=== PATIENT | male | born 1985 | race Caucasian/White ===

== ENCOUNTER 2022-02-22 15:47 | Emergency (ER) | payer OTHER, SELFPAY ==
[2022-02-22 16:10] VITALS: BP 120/77; PULSE 76; RESP 26; TEMP 36.2; O2SAT 99; BMI 33.4
--- NOTE | 2022-02-22 16:15 | DI.RAD.S_ITS ---
PROCEDURE: XR CHEST 2V INDICATIONS: COVID positive 10 days worsening. TECHNIQUE: 2 views of the chest were acquired. COMPARISON: None. FINDINGS: Surgical changes and devices: None. Lungs and pleura: Lungs are clear. No pleural effusions or pneumothorax. Mediastinum: Mediastinal contours are normal. Heart size is normal. Bones and chest wall: No suspicious bony abnormalities. Soft tissues appear unremarkable. IMPRESSION: No focal infiltrates. Dictated by: Yousif Sykes M.D. on 02/22/2022 at 15:42 Approved by: Yousif Sykes M.D. on 02/22/2022 at 15:43
--- NOTE | 2022-02-22 18:46 | DI.CT.S_ITS ---
PROCEDURE: CT ANGIO CHEST PE PROTOCOL INDICATIONS: day 10 covid, worse with CP, exertional dyspnea and orthopne TECHNIQUE: After the administration of intravenous contrast, 2 mm thick sections acquired from the pulmonary apices to the posterior costophrenic angles. 3-dimensional maximum intensity projection (MIP) coronal and sagittal reformats were then acquired through the thorax. For radiation dose reduction, the following was used: automated exposure control, adjustment of mA and/or kV according to patient size. COMPARISON: None. FINDINGS: Image quality: Excellent. Pulmonary arteries: Pulmonary arteries are normal in size, and demonstrate no intraluminal filling defects to suggest central pulmonary embolism. Lungs and pleura: Lungs are clear. No pleural effusions or pneumothorax. Central and peripheral airways are patent. Mediastinum: Heart size is normal, without pericardial effusion. No mediastinal or hilar adenopathy. Thoracic aorta is normal in caliber and enhancement. Esophagus is normal in caliber, without hiatal hernia. Bones and chest wall: No suspicious bony lesions. Ribs and thoracic spine appear intact throughout. Thyroid gland is within normal limits. No axillary or supraclavicular adenopathy. Abdomen: There is mild splenomegaly. Rest of the upper abdominal solid organs appear normal in the early arterial phase of enhancement. IMPRESSION: 1. No evidence of pulmonary emboli. No thoracic aortic aneurysm or dissection. 2. Bilateral lungs are clear. 3. No mediastinal or hilar lymphadenopathy. 4. Mild splenomegaly. Dictated by: Neeraj Oseguera M.D. on 02/22/2022 at 20:05 Approved by: Neeraj Oseguera M.D. on 02/22/2022 at 20:09
[2022-02-22] MEDS: BENZONATATE 100 MG CAPSULE PO (19:19)
[2022-02-22 19:28] LABS: Add Manual Diff / Slide Review NO; Basophils Absolute Auto 400 /uL (0-100); Basophils Percent Auto 4.6 % (0-2); Eosinophils Absolute Auto 300 /uL (0-450); Eosinophils Percent Auto 3.3 % (2-4); Hematocrit 42.9 % (41-53); Hemoglobin 14.7 g/dL (13.5-17.5); Lymphocytes Absolute Auto 2500 /uL (1100-4500); Lymphocytes Percent Auto 33.2 % (25-40); Mean Corpuscular HGB Conc 34.4 % (30-36); Mean Corpuscular Hemoglobin 30.3 PG (26-34); Mean Corpuscular Volume 88.1 fL (80-100); Monocytes Absolute Auto 400 /uL (0-900); Monocytes Percent Auto 5.7 % (3-14); Neutrophils Absolute Auto 4100 /uL (1500-7000); Neutrophils Percent Auto 53.2 % (50-75); Platelet Count 219 X10^3/uL (150-400); Red Blood Cell Count 4.87 X10^6/uL (4.5-5.9); Red Cell Distribution Width 13.3 % (11.6-14.8); White Blood Cell Count 7.6 X10^3/uL (4.5-11.0)
[2022-02-22 19:45] LABS: Alanine Aminotransferase 106 IU/L (<50); Albumin 3.8 g/dL (3.5-5.0); Albumin Globulin Ratio 1.2 (1.0-2.8); Alkaline Phosphatase 75 U/L (38-126); Aspartate Aminotransferase 41 IU/L (17-59); BUN Creatinine Ratio 11.9 (6-22); Bilirubin Total 0.4 mg/dL (0.2-1.3); Blood Urea Nitrogen 13 mg/dL (9-20); Calcium 8.8 mg/dL (8.4-10.2); Carbon Dioxide 25 mmol/L (22-32); Chloride 108 mmol/L (98-107); Creatine Kinase 64 U/L (55-170); Estimated Glomerular Filt Rate > 60 mL/min (>60); Globulin 3.3 g/dL (1.7-4.1); Glucose 96 mg/dL (70-100); HEMOLYSIS 29 (0-50); Potassium 4.2 mmol/L (3.4-5.1); Sodium 138 mmol/L (137-145); Total Protein 7.1 g/dL (6.3-8.2)
[2022-02-22 19:56] LABS: NT-proBNP (BNP-Adult 18+) 18 pg/mL (<125); Troponin I < 0.012 ng/mL (0.01-0.034)
[2022-02-22 20:01] LABS: Procalcitonin 0.04 ng/mL (<0.5)
--- NOTE | 2022-02-22 20:28 | ED.GENADULT ---
HPI - General Adult General Chief complaint: Upper Respiratory Symptoms Stated complaint: covid+/sob/sinus pressure/[id number] Time Seen by Provider: 02/22/22 18:04 Source: patient Mode of arrival: Ambulatory History of Present Illness HPI narrative: Otherwise healthy 36-year-old gentleman vaccinated for COVID on day 10 of infection with complaints of increasing symptoms over the last 24-48 hours consisting of increasing chest pain, dyspnea, exertional dyspnea significantly more fatigued and worsening cough. Initial symptoms had included myalgias sore throat mild cough fevers and nasal discharge all of which have resolved. He reports no abdominal pain vomiting diarrhea or constipation. He is no longer having headaches but he still is having posterior eye pressure. He did note any palpitations and he does not have a history of coronary artery disease Related Data Previous Rx's Medication Instructions Recorded benzonatate 200 mg capsule 200 mg PO BID-TID PRN cough #14 02/22/22 caps Allergies Allergy/AdvReac Type Severity Reaction Status Date / Time No Known Drug Allergies Allergy Verified 02/22/22 16:10 Review of Systems Review of Systems Narrative: Remainder of complete review of systems is otherwise unremarkable except for that included in the HPI. Patient History Medical History (Updated 02/22/22 @ 20:39 by Christine Patel MD) COVID-19 Social History Smoking Status: Never smoker Smoking Status: Never smoker alcohol intake frequency: 3 or more drinks per day Substance Use Type: does not use Exam Initial Vital Signs Initial Vital Signs: Vital Signs Temperature 97.2 F L 02/22/22 16:10 Pulse Rate 76 02/22/22 16:10 Respiratory Rate 26 H 02/22/22 16:10 Blood Pressure 120/77 02/22/22 16:10 Pulse Oximetry 99 02/22/22 16:10 Oxygen Delivery Method 02/22/22 16:10 General: Healthy appearing, in no acute distress. Able to give a complete and coherent history. Well-nourished well-developed HEENT: Moist mucous membranes, normal sclera with reactive pupils, Neck: No JVD, supple Respiratory: Lungs are clear to auscultation, no wheezing no rales no rhonchi. Full and symmetrical air movement Cardiac: Regular rate and rhythm no murmurs no bruits Abdomen: Soft, nontender, good bowel tones, no flank pain Skin: Warm and dry, no rashes Neurologic: Grossly neurologically intact with no obvious asymmetries or abnormalities Extremities: No trauma, well perfused, no lower extremity edema Psych: Cooperative, appropriate insight and affect Course Orders Ordered: ED Orders 02/22/22 16:15 XR chest 2V Stat 02/22/22 18:46 CT angio chest PE protocol Stat 02/22/22 18:51 EKG-12 Lead Stat 02/22/22 19:20 Complete Blood Count AUTO DIFF Stat Comprehensive Metabolic Panel Stat Magnesium Stat NT-proBNP (BNP-Adult 18+) Stat Procalcitonin Stat Troponin & CK Cardiac Panel Stat Troponin I Stat Discontinued Medications Benzonatate (Benzonatate 100 Mg Capsule) 100 mg PO NOW ONE Stop: 02/22/22 18:52 Last Admin: 02/22/22 19:19 Dose: 100 mg Documented By: AT Vital Signs Vital signs: Vital Signs - 8 hr 02/22/22 16:10 Temperature 97.2 F L Pulse Rate 76 Respiratory Rate 26 H Blood Pressure 120/77 Pulse Oximetry 99 Oxygen Delivery Method Room Air Medical Decision Making Lab Data Result diagrams: 02/22/22 19:20 02/22/22 19:20 Labs: Lab Results 02/22/22 02/22/22 02/22/22 Range/Units 19:20 19:20 19:20 WBC 7.6 (4.5-11.0) X10^3/uL RBC 4.87 (4.5-5.9) X10^6/uL Hgb 14.7 (13.5-17.5) g/dL Hct 42.9 (41-53) % MCV 88.1 (80-100) fL MCH 30.3 (26-34) PG MCHC 34.4 (30-36) % RDW 13.3 (11.6-14.8) % Plt Count 219 (150-400) X10^3/uL Neut % (Auto) 53.2 (50-75) % Lymph % (Auto) 33.2 (25-40) % [place] % (Auto) 5.7 (3-14) % Eos % (Auto) 3.3 (2-4) % Baso % (Auto) 4.6 H (0-2) % Neut # (Auto) 4100 (3218-5005) /uL Lymph # (Auto) 2500 (0309-5675) /uL [place] # (Auto) 400 (0-900) /uL Eos # (Auto) 300 (0-450) /uL Baso # (Auto) 400 H (0-100) /uL Sodium 138 (137-145) mmol/L Potassium 4.2 (3.4-5.1) mmol/L Chloride 108 H (98-107) mmol/L Carbon Dioxide 25 (22-32) mmol/L BUN 13 (9-20) mg/dL Creatinine 1.09 (0.66-1.25) mg/dL Estimated GFR > 60 (>60) mL/min BUN/Creatinine Ratio 11.9 (6-22) Glucose 96 (70-100) mg/dL Calcium 8.8 (8.4-10.2) mg/dL Magnesium 2.0 (1.6-2.3) mg/dL Total Bilirubin 0.4 (0.2-1.3) mg/dL AST 41 (17-59) IU/L ALT 106 H (<50) IU/L Alkaline Phosphatase 75 (38-126) U/L Total Creatine Kinase 64 (55-170) U/L CK-MB (CK-2) TNP CK-MB (CK-2) Rel Index TNP Troponin I < 0.012 < 0.012 (0.01-0.034) ng/mL NT-Pro-B Natriuret Pep 18 (<125) pg/mL Total Protein 7.1 (6.3-8.2) g/dL Albumin 3.8 (3.5-5.0) g/dL Globulin 3.3 (1.7-4.1) g/dL Albumin/Globulin Ratio 1.2 (1.0-2.8) Procalcitonin 0.04 (<0.5) ng/mL Imaging Data Chest x-ray: Radiologist's Impression: FINDINGS:? ? Surgical changes and devices:? None.? ? Lungs and pleura:? Lungs are clear.? No pleural effusions or pneumothorax.? ? Mediastinum:? Mediastinal contours are normal.? Heart size is normal.? ? Bones and chest wall:? No suspicious bony abnormalities.? Soft tissues appear unremarkable.? IMPRESSION:? ? No focal infiltrates. ? ? Dictated by: Yousif Sykes M.D. on 02/22/2022 at 15:42 ? ? CT scan - chest: Radiologist's Impression: FINDINGS:? Image quality:? Excellent.? ? Pulmonary arteries:? Pulmonary arteries are normal in size, and demonstrate no intraluminal filling defects to suggest central pulmonary embolism.? ? Lungs and pleura:? Lungs are clear.? No pleural effusions or pneumothorax.? Central and peripheral airways are patent.? ? Mediastinum:? Heart size is normal, without pericardial effusion.? No mediastinal or hilar adenopathy.? Thoracic aorta is normal in caliber and enhancement.? Esophagus is normal in caliber, without hiatal hernia.? ? Bones and chest wall:? No suspicious bony lesions.? Ribs and thoracic spine appear intact throughout.? Thyroid gland is within normal limits.? No axillary or supraclavicular adenopathy.? ? Abdomen:? There is mild splenomegaly.? Rest of the upper abdominal solid organs appear normal in the early arterial phase of enhancement.? ? IMPRESSION:? 1. No evidence of pulmonary emboli.? No thoracic aortic aneurysm or dissection. 2. Bilateral lungs are clear. 3. No mediastinal or hilar lymphadenopathy. 4.? Mild splenomegaly.? ? ? Dictated by: Neeraj Oseguera M.D. on 02/22/2022 at 20:05 ? ? ECG Data Interpretation: Sinus rhythm at a rate of 57 No acute ischemic changes Normal intervals normal axis MDM Narrative Medical decision making narrative: Otherwise healthy 36-year-old gentleman day 10 of COVID with initial symptoms essentially resolved by day 8 and now worsening chest pain and dyspnea. Labs are reassuring, he is showing no signs of hypoxia. CT scan does not suggest any blood clots or pulmonary complications. There is no evidence of myocarditis or pericardial effusion. At this point I believe he is simply having a slightly prolonged recovery from his COVID and not showing signs of superimposed bacterial pneumonia or clotting or cardiac complications. Reassurance is given he is safe for home discharge Discharge Plan Departure Patient Disposition: Home Clinical Impression: COVID-19 Instructions: COVID-19 Activity Restrictions/Additional Instructions: Thank you for coming in today With symptoms getting worse 10 days into your COVID infection the possibility of other complications is very real. The workup today confirms that you do not have bacterial infection, there is no evidence of clotting in your lungs are your heart, no evidence of a virus affecting your heart or fluid collecting around your heart. At this time I think you simply need a bit more time to continue to get her energy back. Using the Tessalon/benzonatate to help suppress the cough can be helpful. It is okay to combined this with the Mucinex that you have been successfully using. If you find that you are getting worse or develop any new symptoms, please feel free to return to the emergency department for further evaluation. Prescriptions: New benzonatate 200 mg capsule 200 mg PO BID-TID PRN (Reason: cough) Qty: 14 0RF
[2022-02-22 21:11] VITALS: BP 115/76; PULSE 57; RESP 18; O2SAT 99
== END 2022-02-22 21:11 | disposition home or self-care (01) ==
PROVIDERS: Emergency Provider Emergency Medicine
DX: U07.1 COVID-19 (principal); R07.9 Chest pain, unspecified
CPT/HCPCS: 36415; 71046; 71275; 80053; 82550; 83735; 83880; 84145; 84484; 85025; 93005; 93010; 99284; Q9967

== ENCOUNTER 2022-04-27 14:06 | Emergency (ER) | payer OTHER, SELFPAY ==
[2022-04-27] VITALS (10 sets, daily range): BP systolic 106–146; BP diastolic 65–80; PULSE 57–71; RESP 18–20; TEMP 36.9; O2SAT 98–100
--- NOTE | 2022-04-27 | DI.CT.S_ITS ---
PROCEDURE: CT ANGIO HEAD INDICATIONS: LEFT SIDE NUMB TECHNIQUE: Precontrast 4.5 mm thick angled axial sections acquired from the foramen magnum to the vertex. After the administration of intravenous contrast, 1 mm thick sections acquired through the [place] of [place]. Postcontrast 4.5 mm thick sections then re-acquired from the foramen magnum to the vertex. 10 mm thick dhvqtxl-ejzzanxey-cgnrobxrmh (MIP) reformats were acquired of the central intracranial vasculature. For radiation dose reduction, the following was used: automated exposure control, adjustment of mA and/or kV according to patient size. COMPARISON: [facility], CT, CT STROKE, 04/27/2022, 14:30. [facility], CT, CT ANGIO HEAD AND NECK, 04/27/2022, 14:30. FINDINGS: Image quality: Excellent. Anterior circulation: Intracranial internal carotid arteries are normal in size and flow. The flow within the paired anterior cerebral arteries is normal and symmetric. The flow within the middle cerebral arteries is normal and symmetric. The anterior communicating artery is seen. No aneurysms are seen. Posterior circulation: Visualized portions of the vertebral arteries demonstrate normal caliber, and join to form a normal appearing basilar artery. Flow within the posterior cerebral arteries is normal and symmetric. No aneurysms are seen. CSF spaces: Ventricles are normal in size and shape. Basal cisterns are patent. No extra-axial fluid collections. Brain: No midline shift. No intracranial bleeds or masses. Mallory-white matter interface appears intact. Skull and face: Calvarium and facial bones appear intact, without suspicious lesions. Sinuses: Visualized sinuses and mastoids are clear. IMPRESSION: No significant intracranial arterial abnormality is seen. Dictated by: Yousif Sykes M.D. on 04/27/2022 at 14:58 Approved by: Yousif Sykes M.D. on 04/27/2022 at 14:59
--- NOTE | 2022-04-27 14:12 | DI.CT.S_ITS ---
PROCEDURE: CT ANGIO NECK INDICATIONS: numb/tingling worse x 30 mins. hx bleed TECHNIQUE: After the administration of intravenous contrast, 1.5 mm axial sections acquired from the aortic arch to the [place] of [place]. Maximum intensity projection (MIP) reformats were then performed. COMPARISON: None. FINDINGS: Image quality: Obtained images are good Neck angiography: Aortic arch and subclavian arteries: Normal flow, no aneurysm. CCAs: No stenosis, occlusion, or aneurysm. ICA origins (by NASCET criteria): No hemodynamically significant narrowing. ICAs: No stenosis, occlusion or aneurysm. ECAs: Origins are patent. Vertebral arteries: Unremarkable Soft tissues: No significant mass, aneurysm, or lymphadenopathy Lung apices: No pneumothorax Bones: No acute or suspicious abnormality. IMPRESSION: No high-grade stenosis, dissection, or large vessel occlusion on CTA neck views. No significant incidental findings. Please note, due to technical error, a CTA head was not performed from the wflnqi-ba-Avzlks to the cranial vertex. The proximal portions of the [id number]-pm-Gzvehp appear patent, but is not fully seen. If this is felt to be necessary, CTA head can be reordered. Any quantitative stenosis measurements were performed using the NASCET criteria. Dictated by: Robin Villegas M.D. on 04/27/2022 at 15:21 Approved by: Robin Villegas M.D. on 04/27/2022 at 15:28
--- NOTE | 2022-04-27 14:12 | DI.CT.S_ITS ---
PROCEDURE: CT STROKE INDICATIONS: numb/tingling worsening, hx of head bleeds TECHNIQUE: Noncontrast 4.5 mm thick angled axial sections acquired from the foramen magnum to the vertex, with coronal reformats. For radiation dose reduction, the following was used: automated exposure control, adjustment of mA and/or kV according to patient size. COMPARISON: None. FINDINGS: Image quality: Excellent CSF spaces: Basal cisterns are patent. Lateral ventricles are symmetric. Volume: Generally maintained. Brain: No intracranial hemorrhage. Mallory-white differentiation is grossly maintained. Craniofacial structures: No displaced fracture. Sinuses are clear. Orbits are intact. IMPRESSION: No acute intracranial abnormality. A CTA has already been obtained at the time of dictation. This study fulfills neurological imaging criteria for inclusion or exclusion of acute stroke therapies based on available published neurological imaging guidelines. Dictated by: Robin Villegas M.D. on 04/27/2022 at 15:05 Approved by: Robin Villegas M.D. on 04/27/2022 at 15:07
--- NOTE | 2022-04-27 14:20 | PC.NURSE ---
faxed facesheet to /[facility] Stroke/Neuro [phone]
[2022-04-27 14:27] LABS: Add Manual Diff / Slide Review NO; Basophils Absolute Auto 0 /uL (0-100); Basophils Percent Auto 0.2 % (0-2); Eosinophils Absolute Auto 200 /uL (0-450); Hematocrit 42.5 % (41-53); Hemoglobin 14.8 g/dL (13.5-17.5); Lymphocytes Absolute Auto 2900 /uL (1100-4500); Lymphocytes Percent Auto 30.9 % (25-40); Mean Corpuscular HGB Conc 34.8 % (30-36); Mean Corpuscular Hemoglobin 30.5 PG (26-34); Mean Corpuscular Volume 87.8 fL (80-100); Monocytes Absolute Auto 700 /uL (0-900); Monocytes Percent Auto 7.5 % (3-14); Neutrophils Absolute Auto 5500 /uL (1500-7000); Neutrophils Percent Auto 59.4 % (50-75); Platelet Count 213 X10^3/uL (150-400); Red Blood Cell Count 4.83 X10^6/uL (4.5-5.9); Red Cell Distribution Width 13.6 % (11.6-14.8); White Blood Cell Count 9.3 X10^3/uL (4.5-11.0)
[2022-04-27 14:35] LABS: INR 1.1 (0.9-1.3); Prothrombin Time 12.5 SECONDS (10.1-12.7)
[2022-04-27 14:37] LABS: PTT Partial Thromboplastin Tim 34 SECONDS (26-36)
--- NOTE | 2022-04-27 14:50 | ED_ITS ---
HPI - Neuro Symptoms/Deficit General Chief Complaint: Neuro Symptoms/Deficit Stated Complaint: lt side numb Time Seen by Provider: 04/27/22 14:12 Source: patient Mode of arrival: Ambulatory History of Present Illness HPI Narrative: This is a 37-year-old male who presents with decreased sensation of the left arm, cheek left leg that started about 130 today. Patient noted on his way over while walking that he had a little bit of difficulty with his left leg with movement. 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 He states the cause was never clearly found he had MRIs at [facility] in [place] and at one point was on anti seizure medication but told that was not the cause. Patient denies any headache. No acute vision changes states speech might be a little bit off but he is equivocal about this. No chest pain, no shortness of breath. He had some nausea after contrast. No sensation changes on the opposite side no GI or urinary symptoms. He states he was camping this weekend had gotten home and was taking a shower when he noticed symptoms start. On Anticoagulants: No Related Data Previous Rx's Medication Instructions Recorded benzonatate 200 mg capsule 200 mg PO BID-TID PRN cough #14 02/22/22 caps Allergies Allergy/AdvReac Type Severity Reaction Status Date / Time No Known Drug Allergies Allergy Verified 02/22/22 16:10 Review of Systems Review of Systems ROS Unobtainable: All systems reviewed & are unremarkable except as noted in HPI and below Hematologic/Lymphatic On Anticoagulants: No Patient History Medical History COVID-19 Social History Smoking Status: Never smoker Smoking Status: Never smoker alcohol intake frequency: 3 or more drinks per day Substance Use Type: does not use Exam Narrative Exam Narrative: GEN: well nourished, well appearing male, alert and oriented x 0 3, patient appears to be in mild distress. HEENT: Atraumatic, pupils are equal round reactive to light, extraocular m ovements are intact, nares are clear, TMs are clear with no fluid, there is no conjunctival pallor. Throat is clear without any exudates, erythema, tonsillar enlargement or uvular deviation HEART: Regular rate and rhythm without murmur, clicks, rubs. No carotid bruits, pulses are equal in upper and lower extremities LUNGS:Lungs clear to auscultation, no wheezes, rales, crackles, chest moves symm etrically ABD:bowel sounds normal, soft, non-tender, no guarding, rebound, rigidity, no masses noted, no hepatosplenomegaly :No CVA tenderness MSCL: Non-tender, no muscle atrophy, muscles strength 5/5 upper and lower extremities, full range of motion, normal gait NEURO:CN 2-12 intact, sensation slightly decreased but present left leg, arm, cheek, finger nose finger test normal, heel moss test normal with right foot. Patient did have some difficulty with left foot to right moss mildly. Initial Vital Signs Initial Vital Signs: Vital Signs Temperature 98.5 F 04/27/22 14:08 Pulse Rate 71 04/27/22 14:08 Respiratory Rate 20 04/27/22 14:08 Blood Pressure 121/78 04/27/22 14:08 Pulse Oximetry 100 04/27/22 14:08 Oxygen Delivery Method 04/27/22 14:08 Scores NIH Stroke Scale Level of Conciousness: Alert, keenly responsive Ask month/age: Answers both questions correctly. Open/close eyes, close hand: Performs both tasks correctly Best gaze horizontal: Normal Visual dalton: No visual loss Facial palsy: Normal symetrical movement Left arm drift: No drift for full 10 sec Right arm drift: No drift for full 10 sec Left leg drift: No drift for full 5 sec Right leg drift: No drift for full 5 sec Limb ataxia: Present in one limb Sensory on face/arms/legs: Mild to moderate sensory loss, can tell touch Best language: No aphasia, normal Dysarthria: Normal Extinction or inattention: No abnormality Total NIH Stroke scale score: 2 Course Orders Ordered: ED Orders 04/27/22 14:[address] angio head and neck Stat Urine Drug Screen, Rapid Stat 04/27/22 14:19 Basic Metabolic Panel Stat Complete Blood Count AUTO DIFF Stat Partial Thromboplastin Time Stat Prothrombin Time INR Stat Troponin & CK Cardiac Panel Stat 04/27/22 14:34 COVID19 -Nasal RAPID/Pre-Proc Stat 04/27/22 15:08 EKG-12 Lead Stat Sodium Chloride (Normal Saline 0.9%) 1,000 mls @ 150 mls/hr IV CONT MATILDE Last Infusion: 04/27/22 18:06 Dose: 0 mls/hr Documented By: Admin: 04/27/22 15:46 Dose: 150 mls/hr Documented By: DANYEL Discontinued Medications Ondansetron HCl (Ondansetron 4 Mg/2 Ml Inj) 4 mg IV NOW ONE Stop: 04/27/22 15:48 Last Admin: 04/27/22 15:49 Dose: 4 mg Documented By: DANYEL Consultations Consultation #1: Dr. Davey, neurology. Was able to review CT angio head and neck including 2nd set of imaging that was sent after patient was rescanned. MRI was reported blooming and left zayas consistent with hemangioma or cavernoma which I obtained verbally from the ED doc at [facility]. Or images. They do not recommend antiplatelet at this time, they do recommend follow-up with neurosurgery which patient has already arranged as well as General Neurology. Does not feel he needs acute MRI today. Aware symptoms have not resolved. Time: 16:22 Vital Signs Vital signs: Vital Signs - 8 hr 04/27/22 14:08 04/27/22 17:00 04/27/22 15:00 Temperature 98.5 F Pulse Rate 71 68 60 Respiratory Rate 20 18 18 Blood Pressure 121/78 108/69 145/68 H Pulse Oximetry 100 99 98 Oxygen Delivery Method Room Air 04/27/22 16:30 04/27/22 15:50 04/27/22 14:15 Temperature Pulse Rate 57 L 58 L 65 Respiratory Rate 18 18 18 Blood Pressure 111/65 112/68 146/80 H Pulse Oximetry 98 98 98 Oxygen Delivery Method 04/27/22 17:14 04/27/22 17:15 04/27/22 17:15 Temperature Pulse Rate 67 62 Respiratory Rate Blood Pressure 106/67 Pulse Oximetry 100 100 Oxygen Delivery Method 04/27/22 17:30 04/27/22 17:30 04/27/22 18:00 Temperature Pulse Rate 68 Respiratory Rate Blood Pressure 108/68 110/70 Pulse Oximetry 100 Oxygen Delivery Method 04/27/22 18:00 Temperature Pulse Rate 64 Respiratory Rate Blood Pressure Pulse Oximetry 100 Oxygen Delivery Method MDM - Neuro Symptoms/Deficit Lab Data Result diagrams: 04/27/22 14:19 04/27/22 14:19 Labs: Lab Results 04/27/22 04/27/22 04/27/22 Range/Units 14:19 14:19 14:19 WBC 9.3 (4.5-11.0) X10^3/uL RBC 4.83 (4.5-5.9) X10^6/uL Hgb 14.8 (13.5-17.5) g/dL Hct 42.5 (41-53) % MCV 87.8 (80-100) fL MCH 30.5 (26-34) PG MCHC 34.8 (30-36) % RDW 13.6 (11.6-14.8) % Plt Count 213 (150-400) X10^3/uL Neut % (Auto) 59.4 (50-75) % Lymph % (Auto) 30.9 (25-40) % Grimes % (Auto) 7.5 (3-14) % Eos % (Auto) 2.0 (2-4) % Baso % (Auto) 0.2 (0-2) % Neut # (Auto) 5500 (1671-5482) /uL Lymph # (Auto) 2900 (9953-1882) /uL Grimes # (Auto) 700 (0-900) /uL Eos # (Auto) 200 (0-450) /uL Baso # (Auto) 0 (0-100) /uL PT 12.5 (10.1-12.7) SECONDS INR 1.1 (0.9-1.3) APTT 34 (26-36) SECONDS Sodium 139 (137-145) mmol/L Potassium 3.9 (3.4-5.1) mmol/L Chloride 105 (98-107) mmol/L Carbon Dioxide 26 (22-32) mmol/L BUN 20 (9-20) mg/dL Creatinine 1.34 H (0.66-1.25) mg/dL Estimated GFR > 60 (>60) mL/min BUN/Creatinine Ratio 14.9 (6-22) Glucose 91 (70-100) mg/dL Calcium 8.7 (8.4-10.2) mg/dL Total Creatine Kinase 170 (55-170) U/L CK-MB (CK-2) 1.39 (<2.37) ng/mL CK-MB (CK-2) Rel Index 0.8 L (1.5-5.0) % Troponin I < 0.012 (0.01-0.034) ng/mL SARS-CoV-2 (PCR) (Negative) 04/27/22 Range/Units 14:34 WBC (4.5-11.0) X10^3/uL RBC (4.5-5.9) X10^6/uL Hgb (13.5-17.5) g/dL Hct (41-53) % MCV (80-100) fL MCH (26-34) PG MCHC (30-36) % RDW (11.6-14.8) % Plt Count (150-400) X10^3/uL Neut % (Auto) (50-75) % Lymph % (Auto) (25-40) % Grimes % (Auto) (3-14) % Eos % (Auto) (2-4) % Baso % (Auto) (0-2) % Neut # (Auto) (9490-5778) /uL Lymph # (Auto) (0423-5687) /uL Grimes # (Auto) (0-900) /uL Eos # (Auto) (0-450) /uL Baso # (Auto) (0-100) /uL PT (10.1-12.7) SECONDS INR (0.9-1.3) APTT (26-36) SECONDS Sodium (137-145) mmol/L Potassium (3.4-5.1) mmol/L Chloride (98-107) mmol/L Carbon Dioxide (22-32) mmol/L BUN (9-20) mg/dL Creatinine (0.66-1.25) mg/dL Estimated GFR (>60) mL/min BUN/Creatinine Ratio (6-22) Glucose (70-100) mg/dL Calcium (8.4-10.2) mg/dL Total Creatine Kinase (55-170) U/L CK-MB (CK-2) (<2.37) ng/mL CK-MB (CK-2) Rel Index (1.5-5.0) % Troponin I (0.01-0.034) ng/mL SARS-CoV-2 (PCR) Negative (Negative) Point of Care Testing Glucose POC 88 Urine Dip Bedside Urine Glucose Negative Bedside Urine Bilirubin - Negative Bedside Urine Ketone - Negative Urine Specific [place] 1.010 Bedside Urine Occult Blood - Negative Bedside Urine pH 6.0 Bedside Urine Protein - Negative Bedside Urine Urobilinogen - Negative Bedside Urine Nitrite - Negative Bedside Urine Leukocytes - Negative Esterase Imaging Data CT scan - head: Radiologist's Impression: Yousif Corbin??37??M??1985 ? Allergy/Adv: No Known Drug Allergies Close Head/Neck CTA 04/27/[address] (Signed) Robin Villegas - 04/27/22 Chest CTA (Signed) Neeraj Oseguera - 02/22/22 Chest X-Ray (Signed) Yousif Sykes - 02/22/22 [place] [address] CT Scan Report Signed Patient: Yousif Corbin MR#: [id number] : 1985 Acct:[id number] Age/Sex: 37 / M Date of Service: 04/27/22 Loc: ED Accession Number: [id number] ?? Procedure: CT Stroke Ordering Provider: Negrita Ford D.O. PROCEDURE:? CT STROKE ? INDICATIONS:? numb/tingling worsening, hx of head bleeds ? TECHNIQUE:? Noncontrast 4.5 mm thick angled axial sections acquired from the foramen magnum to the vertex, with coronal reformats.? For radiation dose reduction, the following was used:? automated exposure control, adjustment of mA and/or kV according to patient size.? ? COMPARISON:? None. ? FINDINGS:? Image quality: Excellent ? CSF spaces: Basal cisterns are patent. Lateral ventricles are symmetric. Volume: Generally maintained. ? Brain: No intracranial hemorrhage. Mallory-white differentiation is grossly maintained. ? Craniofacial structures: No displaced fracture. Sinuses are clear. Orbits are intact. ? IMPRESSION:? No acute intracranial abnormality.? A CTA has already been obtained at the time of dictation. ? This study fulfills neurological imaging criteria for inclusion or exclusion of acute stroke therapies based on available published neurological imaging guidelines.? ? ? Dictated by: Robin Villegas M.D. on 04/27/2022 at 15:05 ? ? Approved by: Robin Villegas M.D. on 04/27/2022 at 15:07?? CTA - brain/neck: Radiologist's Impression: Close Head/Neck CTA (Signed) Robin Villegas - 04/27/[address] (Signed) Robin Villegas - 04/27/22 Chest CTA (Signed) Neeraj Oseguera - 02/22/22 Chest X-Ray (Signed) Yousif Sykes - 02/22/22 Launch?[place] [address] CT Scan Report Signed Patient: Yousif Corbin MR#: [id number] : 1985 Acct:[id number] Age/Sex: 37 / M Date of Service: 04/27/22 Loc: ED Accession Number: [id number] ?? Procedure: CT angio head and neck Ordering Provider: Negrita Ford D.O. PROCEDURE:? CT ANGIO NECK ? INDICATIONS:? numb/tingling worse x 30 mins.? hx bleed ? TECHNIQUE:? After the administration of intravenous contrast, 1.5 mm axial sections acquired from the aortic arch to the [place] of [place].? Maximum intensity projection (MIP) reformats were then performed.? ? COMPARISON:? None. ? FINDINGS:? Image quality:? Obtained images are good ? Neck angiography: ? Aortic arch and subclavian arteries: Normal flow, no aneurysm. CCAs: No stenosis, occlusion, or aneurysm. ICA origins (by NASCET criteria): No hemodynamically significant narrowing. ICAs: No stenosis, occlusion or aneurysm. ECAs: Origins are patent. Vertebral arteries: Unremarkable ? Soft tissues: No significant mass, aneurysm, or lymphadenopathy Lung apices: No pneumothorax Bones: No acute or suspicious abnormality. ? IMPRESSION:? No high-grade stenosis, dissection, or large vessel occlusion on CTA neck views.? No significant incidental findings. Please note, due to technical error, a CTA head was not performed from the cyvrvr-vg-[id number] to the cranial vertex.? The proximal portions of the vmyvyv-yt-Cwtjaq appear patent, but is not fully seen.? If this is felt to be necessary, CTA head can be reordered. ? Any quantitative stenosis measurements were performed using the NASCET criteria.? ? ? Dictated by: Robin Villegas M.D. on 04/27/2022 at 15:21 ? ? Approved by: Robin Villegas M.D. on 04/27/2022 at 15:28?? ECG Data Attestation: I personally reviewed and interpreted this ECG as follows: Interpretation: Sinus rhythm at 66, rate of 166, QRS 80, QTC 394. No acute ST changes appreciated Q-wave in lead 3. MDM Narrative Medical decision making narrative: -this is a 29-year-old male with hemangioma or cavernoma reported verbally and able to obtain eventually MRI verbal report from [facility]. Patient presents with left-sided numbness tingling that started at approximately 1:30 a.m. today. Patient was within window for tPA if stroke, discussed with Telestroke who feels not appropriate tPA candidate his symptoms are not disabling which is also appropriate reason not to at this time. Head CT CT angio which did have 2 repeated as the jewelry technician had stopped imaging before the entire cranium was imaged for angio so this was repeated and all imaging was reviewed by Radiology as well as Neurology. Patient has had persistent symptoms. He is not hypertensive, no other known medical issues besides GERD and on omeprazole. He does have follow- up with Neurosurgery in the next week regarding his hemangioma/cavernoma. After discussion with Neurology they feel appropriate for discharge do not recommend any form of antiplatelet therapy, discussed with patient happy to keep for observation overnight. I do not have MRI available at this time and he defers and plans to return home. Patient and I discussed would recommend following MRI as an outpatient for further workup although neurology felt not needed on an emergent basis. We discussed return precautions having a through low threshold to return. Stroke Core Measures Contraindications for TPA in CVA: Known AVM (cavernous malformation) Discharge Plan Departure Patient Disposition: Home Clinical Impression: Paresthesias Activity Restrictions/Additional Instructions: Follow up with your physician tomorrow I would recommend to have repeat MRI of your brain although neurology did not feel was warrented emergently. I do not have MRI capabilities today. Neurology, Dr. Davey through [facility]. [facility] CT and CT angio today. They do not recommend any anti-platelet therapy or aspirin or plavix today. They do recommend you follow up with neurosurgery as scheduled at [facility]. Also recommended to follow up with general neurology. Please return for new or worsening symptoms, severe headaches, difficulty with speech, changes in vision or other new or concerning changes. You are welcome to return at any time. Prescriptions: No Action benzonatate 200 mg capsule 200 mg PO BID-TID PRN (Reason: cough) Qty: 14 0RF Referrals: Provider,Janneth ISABEL [Primary Care Provider] - Chris Forrest MD [Non-Staff] -
[2022-04-27 14:53] LABS: BUN Creatinine Ratio 14.9 (6-22); Blood Urea Nitrogen 20 mg/dL (9-20); Calcium 8.7 mg/dL (8.4-10.2); Carbon Dioxide 26 mmol/L (22-32); Chloride 105 mmol/L (98-107); Creatine Kinase 170 U/L (55-170); Estimated Glomerular Filt Rate > 60 mL/min (>60); Glucose 91 mg/dL (70-100); HEMOLYSIS < 15 (0-50); Potassium 3.9 mmol/L (3.4-5.1); Sodium 139 mmol/L (137-145)
[2022-04-27 14:56] LABS: COVID19 -Nasal RAPID Negative (Negative)
[2022-04-27 15:05] LABS: Troponin I < 0.012 ng/mL (0.01-0.034)
[2022-04-27 15:08] LABS: CKMB % Relative Index 0.8 % (1.5-5.0); Creatine Kinase MB 1.39 ng/mL (<2.37)
--- NOTE | 2022-04-27 15:26 | PC.NURSE ---
1524: [facility] [place] to initiate telestroke for pt with significant neuro history with [facility] 1330.
[2022-04-27] MEDS: SODIUM CHLORIDE 0.9% 1,000 ML 150 ML IV (15:46)
[2022-04-27] MEDS: ONDANSETRON 4 MG/2 ML INJ IV (15:49)
--- NOTE | 2022-04-27 15:56 | PC.NURSE ---
pt had mri at [facility] sometime in october or november, called [facility] er for mri results for dr raza, and er attending spoke with dr raza to give verbal report comparison.
--- NOTE | 2022-04-27 16:00 | PC.NURSE ---
all images for ct head and ct angio pushed to /[facility] spoke with alison [phone] to tell him images have been sent there.
== END 2022-04-27 19:35 | disposition home or self-care (01) ==
PROVIDERS: Emergency Provider Emergency Medicine
DX: R20.2 Paresthesia of skin (principal); Z86.16 Personal history of COVID-19; Z20.822 Contact with and (suspected) exposure to COVID-19; Q89.9 Congenital malformation, unspecified
CPT/HCPCS: 36415; 70450; 70496; 70498; 80048; 81003; 82550; 82553; 82962; 84484; 85025; 85610; 85730; 87635; 93005; 93010; 96361; 96374; 99284; 99285; C9803; Q3014; J2405; Q9967

== ENCOUNTER → 2022-04-29 19:41 | Outpatient (CLI) | payer OTHER, SELFPAY ==
--- NOTE | 2022-04-29 19:44 | DI.MRI.S_ITS ---
PROCEDURE: MR HEAD/BRAIN WO/W CON INDICATIONS: PARESTHESIA OF SKIN TECHNIQUE: Noncontrast axial T1 spin echo, axial T2 fast spin echo, sagittal and axial FLAIR, coronal T2 fast spin echo, axial gradient echo, axial diffusion and ADC through the brain. After the administration of contrast, axial and coronal and sagittal 3D VIBE or T1 spin echo with fat saturation through the brain. COMPARISON: None. FINDINGS: Focus of susceptibility in the medial left frontal lobe on series 6, image 71 and series 12 image 18 corresponds to a faint calcification in this location on CT, likely accounting for the susceptibility. There is some adjacent thin linear likely vascular enhancement which could represent a small developmental venous anomaly or small hemangioma. A small dural AV fistula or AVM cannot be strictly excluded. Otherwise normal brain parenchymal signal intensity in. No structural abnormality elsewhere. Basilar cisterns and ventricular system are normal in caliber. The major intracranial vascular flow-related signal voids are maintained. Orbital structures normal. Clear paranasal sinuses and mastoid air cells. IMPRESSION: Small indeterminate vascular lesion in the medial right frontal lobe, thought to represent a small hemangioma or developmental venous anomaly versus small dural AV fistula or AVM considered less likely. Given the lesion location and is unlikely to explain any symptoms of paresthesia, although this is not entirely definitive. Correlation with any prior MRIs of be helpful, if available. Otherwise, follow-up MRI in 6 months with IV contrast recommended to document stability. Dictated by: Jose Solorzano M.D. on 04/30/2022 at 10:33 Approved by: Jose Solorzano M.D. on 04/30/2022 at 10:37
== END ==
PROVIDERS: Referring Provider Physician Assistant; Visit Provider Physician Assistant
DX: I67.9 Cerebrovascular disease, unspecified (principal); R20.2 Paresthesia of skin
CPT/HCPCS: 70553; A9579

== ENCOUNTER 2023-06-26 13:42 | Day surgery (SDC) | payer OTHER, SELFPAY ==
[2023-06-25 10:35] VITALS: BMI 32.5
--- NOTE | 2023-06-25 17:37 | PM.PREOP ---
Pre-operative Note Interval Note History & Physical reviewed/Exam performed by Physician: Yes Changes to H&P: No
--- NOTE | 2023-06-26 | PATH_ITS ---
[facility] Accession Number: [id number] No. of containers..01 Tissue . 01 Material submitted: . gallbladder - GALL BLADDER . 01 Diagnosis: Gallbladder, Cholecystectomy: Chronic cholecystitis with cholelithiasis. Negative for dysplasia and malignancy. MRV 07/07/2023 1304 Local . 01 Electronically signed: . Marybel Campo MD, Pathologist NPI- [id number] . 01 Gross description: . The specimen is received in formalin, labeled with the patient's name, , and gallbladder, and consists of an intact gallbladder measuring 10.5 x 2.7 x 2.4 cm. The external surface is unremarkable. The cystic duct margin is inked blue. No pericystic lymph node is identified. The lumen is filled with multiple yellow faceted calculi grossly obstructing the cystic duct and admixed with green mucoid bile. The calculi measure up to 1.4 cm in greatest dimension. The mucosa is green and velvety with denuded areas. No yellow discoloration, polyps, or lesions are identified. The graves average 0.2 cm thick. Finger Cobbler sections to include the cystic duct margin and full-thickness sections are submitted in cassette A1. ([id number]) /FRR 06/27/2023 1708 Local . 01 Pathologist provided ICD-10: K80.00 . 01 CPT . 209293 Specimen Comment: A courtesy copy of this report has been sent to [phone] Performed at: 01 [facility] [address] [place] [address], [place], [place] [id number] MD Thanh Espinosa MD Phone: [phone]
[2023-06-26 13:57] VITALS: BP 116/75; PULSE 80; RESP 16; TEMP 36.2; O2SAT 98; BMI 32.5
[2023-06-26] MEDS: LACTATED RINGERS 1,000 ML 21 ML IV ×2 (14:21→15:51)
[2023-06-26] MEDS: ACETAMINOPHEN 325 MG TABLET 975 MG PO (14:27)
[2023-06-26] MEDS: CEFAZOLIN 2 GM/100 ML PREMIX 100 ML IV (15:00)
--- NOTE | 2023-06-26 15:23 | SUR.OPER ---
Supine on padded OR bed, head on pillow, safety belt at thigh, left arm padded and tucked at side. Right arm secured on padded arm board <90 degrees abduction. Legs uncrossed. Padded footboard in place. Tape over blanket to secure lower legs.
[2023-06-26] MEDS: BUPIVACAINE 0.25% (PF) VIAL 30 ML INJ (15:34)
[2023-06-26 16:22] VITALS: BP 130/78; PULSE 75; RESP 12; TEMP 36.4; O2SAT 96
[2023-06-26 16:27] VITALS: BP 121/65; PULSE 75; RESP 12; O2SAT 94
--- NOTE | 2023-06-26 16:28 | P.OP_ITS ---
Operative Date/Time/Diagnoses Date of procedure: 06/26/23 Time of procedure: 16:29 Pre-op diagnosis: Biliary colic Post-op diagnosis: same Procedure & Clinicians Procedure: Laparoscopic cholecystectomy Same procedure as scheduled: Yes Indications: Symptoms and radiographic findings consistent with biliary Surgeon: Raza Maguire Anesthesia Type: General Operative Notes Findings: Critical view of safety established Chronic cholecystitis Specimen(s): other (Gallbladder) Estimated Blood Loss (mL): 20 Procedure in detail: The patient was placed supine on the table and bilateral lower extremity compression devices were applied. Anesthesia was induced they were intubated with an endotracheal tube and received 2g of Ancef. A time-out was performed. They were prepped and draped in sterile fashion. An infraumbilical incision was made. The fascia was elevated incised and the abdomen was entered atraumatically. A blunt tip 12mm balloon trocar was then inserted, pneumoperitoneum was established and inspection of the abdomen demonstrated no evidence of injury. They were placed head up and right side up and then a 11 mm port was placed high in the epigastrium and two 5mm in the right upper quadrant. Omentum and the duodenal were fused to the gallbladder these were taken down sharply. Findings were consistent with chronic cholecystitis. The gallbladder was grasped by the fundus and retracted over the liver and retracted laterally by the infundibulum. Using electrocautery the lateral plane between the gal lbladder and the liver was opened towards the fundus. The gallbladder was then retracted laterally and the medial plane was developed in the same manner. With the gallbladder mobilized the bottom of the cystic plate was visualized. The hepatocystic triangle was meticulosly skeletonized with blunt dissection of fat and fibrous tissue from both the front and the back. Only two structures were then clearly seen entering the gallbladder the cystic duct and the cystic artery. With the critical view of safety fully established the cystic duct was clipped twice proximally and once distally using the 10 mm Weck hemoclip applied under direct visualization and then sharply divided. The cystic artery was divided in the same fashion. The gallbladder was removed from the liver bed using electro cautery. The liver bed was then inspected for hemostasis and this was achieved. The abdomen was irrigated with sterile saline and inspection was made that showed the clips in good position. The specimen was removed using Endo-Catch. The abdomen was desufflated. The umbilical fascia was closed with 0 Vicryl in a [id number] fashion under direct visualization. Skin incisions were irrigated and closed with 4-0 Monocryl. 30 ml of 0.25% bupivacaine was infiltrated into the subcutaneous tissue of the incisions. The wounds were sealed with Dermabond. Patient emerged from anesthesia was e xtubated and transferred to recovery in stable condition. The sponge and instrument count at the end of the operation was correct. Complications: none Post-operative Condition: stable Disposition: same day surgery
[2023-06-26 16:32] VITALS: BP 119/67; PULSE 75; RESP 12; O2SAT 94
[2023-06-26 16:42] VITALS: BP 127/76; PULSE 82; RESP 14; TEMP 36.4; O2SAT 99
[2023-06-26] MEDS: OXYCODONE IR 5 MG TABLET PO (16:52)
== END 2023-06-26 17:22 | disposition home or self-care (01) ==
PROVIDERS: Referring Provider Surgery; Visit Provider Surgery
PROC: 0FT44ZZ Resection of Gallbladder, Percutaneous Endoscopic Approach (ICD-10-PCS; CPT 47562; principal; 2023-06-26 14:45)
DX: K80.10 Calculus of gallbladder with chronic cholecystitis without obstruction (principal)
CPT/HCPCS: 47562; J0690; J1100; J1170; J1885; J2250; J2405; J2704; J3010

== ENCOUNTER → 2023-11-19 08:05 | Outpatient (CLI) | payer OTHER, SELFPAY ==
--- NOTE | 2023-11-19 | DI.US.S_ITS ---
PROCEDURE: US SCROTUM INDICATIONS: TESTICULAR MASS TECHNIQUE: Real-time scanning was performed of the scrotum and testicles, with image documentation. Color and pulse Doppler interrogation was performed of both testicles. COMPARISON: None. FINDINGS: Right: Testicle is normal in size at 4.6 x 3 x 2.7 cm, and homogenous in echotexture. Epididymis is normal in overall size and morphology. Right scrotal pleural measuring 0.5 cm. This is at the palpable abnormality. Small hydrocele. No varicoceles. Overlying scrotal skin is normal in thickness. Left: Testicle is normal in size at 4.5 x 2.9 x 2.5 cm, and homogeneous in echotexture. Epididymis is normal in overall size and morphology. Small hydrocele. No varicoceles. Overlying scrotal skin is normal in thickness. Doppler: Color and pulse Doppler demonstrate normal and symmetric arterial flow in both testicles. IMPRESSION: 1. Right palpable abnormality corresponds to a small scrotal nessa measuring 0.5 cm. 2. No testicular mass. 3. Small hydroceles. No varicocele. Dictated by: Manjit Frias M.D. on 11/19/2023 at 15:09 Approved by: Manjit Frias M.D. on 11/19/2023 at 15:14
== END ==
LOC: US 08:05
PROVIDERS: PCP Family Medicine; Referring Provider Physician Assistant Medical; Visit Provider Physician Assistant Medical
DX: N50.89 Other specified disorders of the male genital organs (principal); N43.3 Hydrocele, unspecified
CPT/HCPCS: 76870